=== PATIENT | male | born 1960 | race Caucasian/White ===

== ENCOUNTER 2021-02-13 17:54 | Emergency (ER) | payer OTHER ==
[~2021-02-13] VITALS: Ht 152.4 cm; Wt 86.2 kg
[~2021-02-13 17:54] MED LIST: DICLOFENAC SODI50 MG PO; LIPITOR20 MG PO; MEDROLPACK PO
[2021-02-13] MEDS ORDERED: CRESTOR20 MG PO (18:06)
[2021-02-13] MEDS ORDERED: LOSARTAN POTASS25 MG PO (18:06)
[2021-02-13] MEDS ORDERED: OSEL75CA PO (20:16)
== END 2021-02-13 20:37 | disposition home or self-care (01) ==
LOC: ER 17:54
DX: J10.1 Influenza due to other identified influenza virus with other respiratory manifestations (principal); Z20.822 Contact with and (suspected) exposure to COVID-19

== ENCOUNTER 2021-05-18 11:51 | Emergency (ER) | payer OTHER ==
[~2021-05-18] VITALS: Ht 175.3 cm; Wt 87.1 kg
[~2021-05-18 11:51] MED LIST changes: +CRESTOR20 MG PO; +LOSARTAN POTASS25 MG PO; +OSEL75CA PO
[2021-05-18] MEDS ORDERED: IBU800 MG PO (14:18)
== END 2021-05-18 14:39 | disposition home or self-care (01) ==
LOC: ER 11:51
DX: M25.511 Pain in right shoulder (principal); I10 Essential (primary) hypertension; E11.9 Type 2 diabetes mellitus without complications